=== PATIENT | female | born 1950 | race American Indian/Alaskan Native ===

== ENCOUNTER 2017-02-08 08:46 | Outpatient (CLI) | payer MEDICARE ==
--- NOTE | 2017-02-09 08:23 | Ultrasound Report ---
ULTRASOUND PELVIS COMPLETE - TRANSABDOMINAL AND TRANSVAGINAL: INDICATION: Postmenopausal bleeding. COMPARISON: None similar. FINDINGS: Transabdominal and transvaginal pelvic sonography demonstrates a 10.4 x 5.9 x 8 cm retroverted uterus with a dominant, large solid, heterogeneous, 6 x 4.3 x 4.6 cm vascular mass centrally in the body as on endovaginal images 19-39. A normal endometrial stripe not distinctly seen separate from this; rather not excluded expanded to approximately 3.8 cm as on endovaginal image 22. A smaller approximately 1.7 cm exophytic lobulation from this larger mass or an adjacent similar characteristic from mass/fibroid may be noted more inferiorly as on endovaginal image 25. No significant free fluid. Normal ovaries, estimated at 1.7 x 1.2 x 1.8 cm on the right and 1.6 x 0.6 x 1.7 cm on the left. CONCLUSION: 1. At least 2 heterogeneous uterine masses/possible fibroids noted centrally, not excluded submucosal, as detailed above. Please correlate. 2. Normal bilateral ovaries. Thank you for the opportunity to participate in this patient's care.
== END 2017-02-08 08:47 | disposition home or self-care (01) ==
LOC: US 08:46
PROVIDERS: ATTEND Obstetrics & Gynecology Gynecology
DX: N85.8 Other specified noninflammatory disorders of uterus (principal); N95.0 Postmenopausal bleeding; N95.9 Unspecified menopausal and perimenopausal disorder; I10 Essential (primary) hypertension; J45.909 Unspecified asthma, uncomplicated; J18.9 Pneumonia, unspecified organism
CPT/HCPCS: 76830; 76856

== ENCOUNTER 2020-01-25 11:07 | Outpatient (CLI) | payer MEDICARE ==
--- NOTE | 2020-01-25 13:50 | Vascular Lab Report ---
DUPLEX DOPPLER LOWER EXTREMITY VEINS, RIGHT INDICATION / CLINICAL INFORMATION: M79.89Other specified soft tissue disorders/M79.662Pain in left l. TECHNIQUE: Duplex doppler imaging was performed through the veins of the right lower extremity using venous comp ression and other maneuvers. COMPARISON: None available. FINDINGS: RIGHT COMMON FEMORAL VEIN: Negative. RIGHT FEMORAL VEIN: Negative. RIGHT POPLITEAL VEIN: Negative. RIGHT CALF VEINS: Negative. ADDITIONAL FINDINGS: None. IMPRESSION: 1. No sonographic evidence for DVT in the right lower extremity. Signer Name: Ovi Bryant MD Signed: 01/25/2020 1:46 PM Workstation Name: [id number]
== END 2020-01-25 11:08 | disposition home or self-care (01) ==
LOC: VAS 11:07
PROVIDERS: ATTEND Family Medicine
DX: M79.662 Pain in left lower leg (principal); M79.89 Other specified soft tissue disorders